=== PATIENT | male | born 1995 | race African-American/Black ===

== ENCOUNTER 2023-03-18 09:48 | Emergency (ER) | payer SELFPAY ==
[~2023-03-18] VITALS: Ht 177.8 cm; Wt 75.0 kg
[2023-03-18 09:53] VITALS: TEMP 98.4; O2SAT 100
[2023-03-18 09:58] VITALS: BP 145/93; PULSE 98; RESP 18
[2023-03-18] MEDS ORDERED: IBUPROFEN 100MG/5ML UDC PO ONE (10:15)
[2023-03-18] MEDS ORDERED: DEXAMETHASONE 10 MG/ML VIAL PO ONE (10:15)
[2023-03-18] MEDS ORDERED: IBUP-2778 MT (10:20)
[2023-03-18] MEDS ORDERED: IBUPROFEN 400MG TABLET PO NR (10:30)
== END 2023-03-18 10:50 | disposition home or self-care (01) ==
LOC: ER 09:48
DX: J03.90 Acute tonsillitis, unspecified (principal)
CPT/HCPCS: 87430; 87070; 99283; J1100; Z7610 ×2

== ENCOUNTER 2024-05-10 15:16 | Emergency (ER) | payer SELFPAY ==
[~2024-05-10] VITALS: Ht 180.3 cm; Wt 72.0 kg
[~2024-05-10 15:16] MED LIST: IBUP-2778 MT
[2024-05-10 16:11] VITALS: BP 145/90; PULSE 78; RESP 16; TEMP 36.9; O2SAT 99
[2024-05-10] MEDS: DEXAMETHASONE 10 MG/ML VIAL IM NR (18:28)
[2024-05-10] MEDS ORDERED: SULF1TAB48 MT (19:42)
== END 2024-05-10 20:07 | disposition left against medical advice (07) ==
LOC: ER 15:16
DX: L03.211 Cellulitis of face (principal)
CPT/HCPCS: 96372; 99283; J1100; Z7610